=== PATIENT | female | born 1985 | race Caucasian/White ===

== ENCOUNTER → 2016-12-10 | Outpatient (CLI) | payer BC | LOC: BHSO 08:58 | DX: F31.81 Bipolar II disorder (principal) ==

== ENCOUNTER → 2017-01-08 | Outpatient (CLI) | payer BC | LOC: BHSO 08:42 | DX: F31.81 Bipolar II disorder (principal) ==

== ENCOUNTER → 2017-02-24 | Outpatient (CLI) | payer BC | LOC: BHSO 09:23 | DX: F31.81 Bipolar II disorder (principal) ==

== ENCOUNTER → 2017-03-25 | Outpatient (CLI) | payer BC | LOC: BHSO 09:02 | DX: F31.81 Bipolar II disorder (principal) ==

== ENCOUNTER → 2017-05-13 | Outpatient (CLI) | payer BC | LOC: BHSO 09:00 | DX: F31.81 Bipolar II disorder (principal) ==

== ENCOUNTER → 2017-08-12 | Outpatient (CLI) | payer BC | LOC: BHSO 09:01 | DX: F31.81 Bipolar II disorder (principal) ==

== ENCOUNTER → 2017-10-05 | Outpatient (CLI) | payer BC | LOC: BHSO 09:01 | DX: F31.81 Bipolar II disorder (principal) | CPT/HCPCS: G0463 ==

== ENCOUNTER → 2017-12-02 | Outpatient (CLI) | payer BC | LOC: BHSO 09:01 | DX: F31.81 Bipolar II disorder (principal) | CPT/HCPCS: G0463 ==

== ENCOUNTER → 2018-03-02 | Outpatient (CLI) | payer BC | LOC: BHSO 10:02 | DX: F31.81 Bipolar II disorder (principal) | CPT/HCPCS: G0463 ==

== ENCOUNTER → 2018-04-14 | Outpatient (CLI) | payer BC | LOC: COL.RAD 09:34 | DX: R10.9 Unspecified abdominal pain (principal); Z90.49 Acquired absence of other specified parts of digestive tract ==

== ENCOUNTER → 2018-06-09 | Outpatient (CLI) | payer BC | LOC: BHSO 11:21 | DX: F31.81 Bipolar II disorder (principal) | CPT/HCPCS: G0463 ==

== ENCOUNTER → 2018-08-24 | Outpatient (CLI) | payer BC | LOC: BHSO 09:42 | DX: F31.81 Bipolar II disorder (principal) | CPT/HCPCS: G0463 ==

== ENCOUNTER → 2018-10-25 | Outpatient (CLI) | payer BC | LOC: BHSO 11:03 | DX: F31.81 Bipolar II disorder (principal) | CPT/HCPCS: G0463 ==

== ENCOUNTER → 2019-01-26 | Outpatient (CLI) | payer BC | LOC: BHSO 15:21 | DX: F31.81 Bipolar II disorder (principal) | CPT/HCPCS: G0463 ==

== ENCOUNTER → 2019-03-22 | Outpatient (CLI) | payer BC | LOC: BHSO 11:20 | DX: F31.81 Bipolar II disorder (principal) | CPT/HCPCS: G0463 ==

== ENCOUNTER → 2019-07-19 | Outpatient (CLI) | payer BC | LOC: BHSO 08:03 | DX: F31.81 Bipolar II disorder (principal) | CPT/HCPCS: G0463 ==

== ENCOUNTER → 2019-09-28 | Outpatient (CLI) | payer BC | LOC: BHSO 09:03 | DX: F31.81 Bipolar II disorder (principal) | CPT/HCPCS: G0463 ==

== ENCOUNTER → 2020-03-27 | Outpatient (CLI) | payer BC | LOC: BHSO 09:01 | DX: F31.81 Bipolar II disorder (principal) | CPT/HCPCS: G0463 ==

== ENCOUNTER → 2023-10-13 | Outpatient (CLI) | payer BC ==
[~2023-10-13] MED LIST: Iohexol 300 - 100 ML VIAL IV ONE; NS 100 ML IV SCH
== END ==
LOC: COL.RAD 14:20
DX: R06.02 Shortness of breath (principal); R07.9 Chest pain, unspecified
CPT/HCPCS: Q9967

== ENCOUNTER → 2024-07-04 | Outpatient (CLI) | payer BC ==
[~2024-07-04] MED LIST changes: +Albuterol 0.083% Neb Soln 2.5 MG/3 ML UD IH ONE; -Iohexol 300 - 100 ML VIAL IV ONE; +Methacholine Vial A (Clear Label Base-Cntrl) IH ONE; +Methacholine Vial B (Red Label) 0.0625 MG/ML 3 ML VIAL.NEB IH ONE; +Methacholine Vial C (Orange Label) 0.25 MG/ML 3 ML VIAL.NEB IH ONE; +Methacholine Vial D (Yellow Label) 1 MG/ML 3 ML VIAL.NEB IH ONE; +Methacholine Vial E (Green Label) 4 MG/ML 3 ML VIAL.NEB IH ONE; +Methacholine Vial F (Blue Label) 16 MG/ML 3 ML VIAL.NEB IH ONE; -NS 100 ML IV SCH
== END ==
LOC: COL.CARD 09:15
DX: R06.02 Shortness of breath (principal)
CPT/HCPCS: J7674